=== PATIENT | female | born 1995 | race Caucasian/White ===

== ENCOUNTER 2016-10-21 15:18 | Emergency (ER) | payer OTHER ==
[2016-10-21 16:09] LABS: BASOPHILS % 0.2 (0.0-1.5); EOSINOPHILS % 1.5 % (0.0-6.8); LYMPHOCYTES # 2.2 # k/uL (0.6-4.0); MEAN CORPUSCULAR HEMOGLOBIN 30.6 pg (28.0-34.0); MONOCYTES # 0.6 # k/uL (0.0-0.9); NEUTROPHILS # 4.9 # k/uL (1.4-7.7)
[2016-10-21] MEDS ORDERED: 0.9 % SODIUM CHLORIDE 1,000 ML IV ONE (16:10)
[2016-10-21 16:20] LABS: eGFR (African) > 60; eGFR (Non-African) > 60
[2016-10-21 17:26] LABS: APPEARANCE,URINE Clear (CLEAR); COLOR,URINE Yellow (YELLOW); OCCULT BLOOD,URINE Trace-intact (NEGATIVE); PH URINE 5.5 (5.0 - 8.0); UROBILINOGEN URINE 0.2 Eu (0.2-1.0)
[2016-10-21 17:31] LABS: AMPHETAMINE NON NEGATIVE ng/mL (<1000); BARBITURATES NEGATIVE ng/mL (<300); CANNABINOIDS NON NEGATIVE ng/mL (<50); COCAINE NEGATIVE ng/mL (<150); METHAMPHETAMINE NON NEGATIVE ng/mL (<1000); METHYLENEDIOXYMETHAMPHETAMINE NEGATIVE ng/mL (<500)
--- NOTE | 2016-10-21 17:32 | ED Physician Documentation ---
General Adult - HISTORIAN Historian: patient - HPI Stated Complaint: needing medical clearance for rehab admission Chief Complaint: General Adult Timing: worse Further Comments: yes (21 year old female patient presents with complaints of feeling "like I am dying". Patient states she did a line of methamphetamine yesterday at 0900, states she has felt paranoid, shaky, chest pain, and severe fatigue since that time. Patient concerned the meth "may have been laced". Patient admits to a 3 year history of meth and THC use.) - ROS CONST: no problems EYES/ENT: none CVS/RESP: chest pain. denies: shortness of breath, cough GI/: none LNMP: 09/27/16 MS/SKIN/LYMPH: none NEURO/PSYCH: headache, dizziness, tingling, numbness, difficulty walking, anxiety. denies: fainting, difficulty with speech, depression - PAST HX Past History: other (left atrial enlargement. ) Surgeries/Procedures: none Allergies/Adverse Reactions: Allergies Allergy/AdvReac Type Severity Reaction Status Date / Time No Known Allergies Allergy Verified 10/21/16 16:00 Home Medications: Ambulatory Orders Medication Instructions Recorded NK [NK] 10/21/16 - SOCIAL HX Smoking History: cigarettes - FAMILY HX Family History: No - VITAL SIGNS Vital Signs: Vital Signs Temp Pulse Resp BP Pulse Ox 98.0 F 80 16 98/67 99 10/21/16 15:20 10/21/16 17:04 10/21/16 15:20 10/21/16 15:20 10/21/16 17:04 - REVIEWED ASSESSMENTS Nursing Assessment Reviewed: Yes Vitals Reviewed: Yes Progress - Progress Progress: Patient states she feels better after IV fluid, states she is ready to go. Patient has appointment at [facility] for admission. - EKG/XRAY/CT EKG: rhythm (rate 74, no acute changes) ED Results Lab/Radiology - Lab Results Lab Results: Lab Results 10/21/16 10/21/16 10/21/16 17:20 15:50 15:50 WBC RBC Hgb Hct MCV MCH MCHC RDW Plt Count Neut % (Auto) Lymph % (Auto) [place] % (Auto) Eos % (Auto) Baso % (Auto) Neut # Lymph # [place] # Eos # Baso # Reactive Lymphs % Reactive Lymphs # Sodium 135 mmol/L L mmol/L (136-145) Potassium 3.5 mmol/L mmol/L (3.5-5.0) Chloride 96 mmol/L L mmol/L (98-110) Carbon Dioxide 25 mmol/L mmol/L (20-32) BUN 14 mg/dL mg/dL (10-26) Creatinine 0.5 mg/dL mg/dL (0.4-1.5) Estimated Creat Clear 142 Est GFR ( Amer) > 60 (60 - ) Est GFR (Non-Af Amer) > 60 (60 - ) Glucose 74 mg/dL mg/dL (70-99) Calcium 10.0 mg/dL mg/dL (8.5-10.5) Total Bilirubin 1.1 mg/dL mg/dL (0.2-1.2) AST 18 U/L U/L (0-41) ALT 15 U/L U/L (0-45) Alkaline Phosphatase 53 U/L U/L (46-116) Troponin I < 0.03 ng/mL L ng/mL (0.03-0.06) Total Protein 7.8 g/dL g/dL (6.0-8.5) Urine Color Yellow (YELLOW) Urine Appearance Clear (CLEAR) Urine pH 5.5 (5.0 - 8.0) Ur Specific [place] 1.025 (1.010-1.030) Urine Protein Negative mg/dL mg/dL (NEGATIVE) Urine Ketones 2+ mg/dL H mg/dL (NEGATIVE) Urine Occult Blood Trace-intact (NEGATIVE) Urine Nitrite Negative (NEGATIVE) Urine Bilirubin Negative (NEGATIVE) Urine Urobilinogen 0.2 Eu Eu (0.2-1.0) Ur Leukocyte Esterase Negative (NEGATIVE) Urine Glucose Negative mg/dL mg/dL (NEGATIVE) 10/21/16 15:50 WBC 7.90 K/ul K/ul (4.00-12.00) RBC 4.45 M/ul M/ul (3.90-5.20) Hgb 13.6 g/dL g/dL (12.0-16.0) Hct 39.6 % % (34.5-46.5) MCV 89.0 fl fl (80.0-100.0) MCH 30.6 pg pg (28.0-34.0) MCHC 34.3 g/dL g/dL (30.0-36.0) RDW 12.4 % % (11.3-14.3) Plt Count 193 K/mm3 K/mm3 (130-400) Neut % (Auto) 61.7 % % (39.0-79.0) Lymph % (Auto) 27.4 % % (16.0-50.0) [place] % (Auto) 7.0 % % (0.0-11.0) Eos % (Auto) 1.5 % % (0.0-6.8) Baso % (Auto) 0.2 (0.0-1.5) Neut # 4.9 # k/uL # k/uL (1.4-7.7) Lymph # 2.2 # k/uL # k/uL (0.6-4.0) [place] # 0.6 # k/uL # k/uL (0.0-0.9) Eos # 0.1 # k/uL # k/uL (0.0-0.6) Baso # 0.0 # k/uL # k/uL (0.0-0.5) Reactive Lymphs % 2.1 % % (0.0-5.0) Reactive Lymphs # 0.2 # k/uL # k/uL (0.0-0.8) Sodium Potassium Chloride Carbon Dioxide BUN Creatinine Estimated Creat Clear Est GFR ( Amer) Est GFR (Non-Af Amer) Glucose Calcium Total Bilirubin AST ALT Alkaline Phosphatase Troponin I Total Protein Urine Color Urine Appearance Urine pH Ur Specific [place] Urine Protein Urine Ketones Urine Occult Blood Urine Nitrite Urine Bilirubin Urine Urobilinogen Ur Leukocyte Esterase Urine Glucose - Orders Orders: ED Orders Category Date Time Status Continuous EKG monitoring Q30M Care 10/21/16 15:34 Active Continuous Pulse Oximetry Q30M Care 10/21/16 15:[address] Saline Lock/IV NOW Care 10/21/16 15:34 Active CBC/PLATELET/DIFF Stat Lab 10/21/16 15:50 Completed CMP Stat Lab 10/21/16 15:50 Completed TROPONIN I (cTnI) Stat Lab 10/21/16 15:50 Completed UA W/MICRO IF INDICATED Stat Lab 10/21/16 17:20 Completed Urine drug screen [DRUG SCREEN URINE MEDICAL ONLY] Stat Lab 10/21/16 17:20 Received 0.9 % Sodium Chloride [Normal Saline] 1,000 ml Med 10/21/16 16:10 Discontinued IV NOW EKG WITH COMPARISON Stat Ther 10/21/16 15:34 Ordered General Adult Physical Exam - PHYSICAL EXAM GENERAL APPEARANCE: moderate distress EENT: eye inspection normal, ENT inspection normal, pharynx normal, no signs of dehydration, MYRNA, TM's nml CVS: reg rate & rhythm, heart sounds normal, equal pulses, no murmur, no gallop , PMI nml, no JVD, no friction rub, 24 ABDOMEN: soft, no organomegaly, normal bowel sounds, no abdominal bruit, no distension SKIN: warm/dry, normal color, other (multiple lesions noted on face and extremities) EXTREMITIES: non-tender, normal range of motion, no evidence of injury, no edema , J, 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
[2016-10-21 18:25] VITALS: BP 103/63
[2016-10-22] MEDS ORDERED: DEXTROSE 5 %-0.45 % NACL 1,000 ML IV ONE (02:53)
[2016-10-24 11:31] LABS: CANNABINOIDS CONFIRMATION 63 ng/mL (<15)
== END 2016-10-21 18:12 | disposition home or self-care (01) ==
LOC: ED 15:18
DX: F15.20 Other stimulant dependence, uncomplicated (principal); F12.20 Cannabis dependence, uncomplicated
CPT/HCPCS: 80053; 80325; 80349; 80359; 80360; 80377; 81002; 84484; 85025; J7030; 99282; G0477; G0480; G0482; S1016

== ENCOUNTER 2016-10-22 12:46 | Outpatient (CLI) | payer OTHER ==
[2016-10-21 18:25] VITALS: BP 103/63
--- NOTE | 2016-10-22 15:14 | Diagnostic Imaging Report ---
[facility] [id number] [facility].[address] [id number] Report Submission Date: Oct 22, 2016 1:11:02 PM HOSPITAL INTERN Patient Study Name: REBECA LEROY Date: Oct 22, 2016 12:55:23 PM HOSPITAL INTERN Modality Type: CR Gender: F Description: CHEST : 89 Institution: [facility] Physician: LYDIA CARLOS Chest two views HISTORY: Cough, wheezing, smoker, chest pain, difficulty breathing FINDINGS: The lungs are hyperinflated without infiltrate, pleural effusion, or pneumothorax. Heart size and pulmonary vascularity are normal. Osseous structures are intact. IMPRESSION: Hyperinflation. Electronically signed on Oct 22, 2016 1:11:02 PM HOSPITAL INTERN by: Heri GREEN
== END 2016-10-22 12:55 ==
LOC: RAD 12:46
PROVIDERS: ATTEND Family Medicine
DX: R05 Cough (principal); F17.210 Nicotine dependence, cigarettes, uncomplicated; R07.9 Chest pain, unspecified
CPT/HCPCS: 71020